=== PATIENT | female | born 1975 | race Caucasian/White ===

== ENCOUNTER 2016-07-22 18:50 | Emergency (ER) | payer OTHER ==
[~2016-07-22] VITALS: Ht 157.4 cm; Wt 49.9 kg
[~2016-07-22 18:50] MED LIST: CLARITIN10 MG PO; EPI EZ PEN1 MG/ML IM; TRAMADOL HCL50 MG PO; TRIMOX500 MG PO
[2016-07-22] MEDS ORDERED: Motrin,Rufen800 MG PO (19:12)
[2016-07-22] MEDS ORDERED: ULTRAM50 MG PO (19:12)
[2016-07-22] MEDS ORDERED: CLINDAMYCIN HC300 MG PO (19:12)
== END 2016-07-22 19:14 | disposition home or self-care (01) ==
LOC: ED 18:50
DX: K04.01 Reversible pulpitis (principal); K02.9 Dental caries, unspecified; F17.200 Nicotine dependence, unspecified, uncomplicated